=== PATIENT | male | born 1940 | race Caucasian/White ===

== ENCOUNTER 2016-06-27 08:30 | Inpatient (IN) ==
[2016-06-23 12:34] LABS: Appearance,Urine CLEAR; Bilirubin,Urine NEG (NEG); Color,Urine YELLOW; Glucose,Urine (UA) NEGATIVE (NEG); Leukocyte Esterase,Urine NEG /uL (NEG); Nitrate,Urine NEG (NEG); Protein,Urine NEG (NEG); Specific Gravity,Urine 1.016 (1.000-1.035); Urine Blood NEG mg/dL (<0.03); Urobilinogen,Urine NEG (NEG)
[2016-06-23 13:15] LABS: Basophils # (Auto) 0 K/mcL (0.0-0.3); Basophils % (Auto) 0.5 % (0.0-2.0); Eosinophils # (Auto) 0.1 K/mcL (0.0-0.7); Eosinophils % (Auto) 2.1 % (0.0-7.0); Granulocytes % (Auto) 70.4 % (38.0-78.0); Lymphocytes # (Auto) 1.2 K/mcL (1.5-4.8); Mean Corpuscular HGB Conc 31.9 g/dL (31.0-36.0); Mean Corpuscular Hemoglobin 28.7 pg (26.0-34.0); Monocytes # (Auto) 0.3 K/mcL (0.1-0.9); Platelet Count 177 K/mcL (140-440); RBC 4.53 M/mcL (4.50-5.90); Red Cell Distribution Width 13.8 % (11.5-14.5)
[2016-06-23 13:19] LABS: Blood Urea Nitrogen 18 mg/dl (8-23)
[~2016-06-27 08:30] MED LIST: ACETAMINOPHEN 500 MG TABLET PO SCH; CELECOXIB 200 MG CAPSULE PO SCH; PREGABALIN 150 MG CAPSULE PO SCH; ceFAZolin 1 GM VIAL IV SCH; oxyCODONE 10 MG TAB.ER.12H PO SCH
[2016-06-27] MEDS ORDERED: GENTAMICIN SULFATE 800 MG/20 ML VIAL IR ONE (11:32)
[2016-06-27] MEDS ORDERED: TRANEXAMIC ACID 1,000 MG/10 ML VIAL IV ONE (12:35)
[2016-06-27] MEDS ORDERED: KETAMINE 100 MG/ML ML IV ONE (12:35)
[2016-06-27] MEDS ORDERED: GLYCOPYRROLATE 0.2 MG/ML VIAL IV ONE (12:35)
[2016-06-27] MEDS ORDERED: LIDOCAINE HCL/PF 100 MG/5 ML SYRINGE IV ONE (12:35)
[2016-06-27] MEDS ORDERED: MIDAZOLAM 5 MG/5 ML VIAL IV ONE (12:35)
[2016-06-27] MEDS ORDERED: PHENYLEPHRINE 10 MG/ML VIAL IV ONE (12:35)
[2016-06-27] MEDS ORDERED: ONDANSETRON 4 MG/2 ML VIAL IV ONE (12:35)
[2016-06-27] MEDS ORDERED: PROPOFOL 200 MG/20 ML VIAL IV ONE (12:35)
[2016-06-27] MEDS ORDERED: ONDANSETRON 4 MG/2 ML VIAL IV PRN ×2 (13:21→13:56)
[2016-06-27] MEDS ORDERED: ePHEDrine 50 MG/ML AMPUL IV PRN (13:21)
[2016-06-27] MEDS ORDERED: MEPERIDINE 25 MG/ML SYRINGE IV PRN (13:21)
[2016-06-27] MEDS ORDERED: BENZOCAINE/MENTHOL 1 LOZENGE PO PRN ×2 (13:21→13:56)
[2016-06-27] MEDS ORDERED: fentaNYL 100 MCG/2 ML VIAL IV PRN (13:21)
[2016-06-27] MEDS ORDERED: IPRATROPIUM/ALBUTEROL 3 ML AMPUL.NEB NEB PRN (13:21)
[2016-06-27] MEDS ORDERED: METHOCARBAMOL 1,000 MG/10 ML VIAL IV PRN (13:21)
[2016-06-27] MEDS ORDERED: LACTATED RINGERS 1,000 ML IV SCH (13:30)
[2016-06-27] MEDS ORDERED: POLYETHYLENE GLYCOL 3350 17 GM PACKET PO PRN (13:56)
[2016-06-27] MEDS ORDERED: TRANEXAMIC ACID 1,000 MG/10 ML VIAL IV SCH (13:56)
[2016-06-27] MEDS ORDERED: MAGNESIUM HYDROXIDE 30 ML ORAL.SUSP PO PRN (13:56)
[2016-06-27] MEDS ORDERED: BISACODYL 10 MG SUPP.RECT PR PRN (13:56)
[2016-06-27] MEDS ORDERED: KETOROLAC 15 MG/ML VIAL IV PRN (13:56)
[2016-06-27] MEDS ORDERED: ACETAMINOPHEN 325 MG TABLET PO PRN (13:56)
[2016-06-27] MEDS ORDERED: FLEETS ADULT ENEMA PR PRN (13:56)
[2016-06-27] MEDS ORDERED: HYDROmorphone 2 MG/ML SYRINGE IV PRN (13:56)
--- NOTE | 2016-06-27 14:51 | Operative Note ---
DATE OF OPERATION: 06/27/2016 PREOPERATIVE DIAGNOSIS: Right hip degenerative arthritis, severe. POSTOPERATIVE DIAGNOSIS: Right hip degenerative arthritis, severe. PROCEDURE: Right total hip arthroplasty with cementless components. SURGEON: Nikhil Parker MD CENTRIFUGE OPERATOR: Santiago Lanier PA-C ANESTHESIA: General LMA anesthesia. COMPLICATIONS: None. IMPLANTS: All cementless components with a size 5 stem, a +4 ceramic neck length dual mobility ball, and a 56 cup, Anthony components. ESTIMATED BLOOD LOSS: About 120 mL. DESCRIPTION OF PROCEDURE: The patient was brought to the operating room and put to sleep with general LMA anesthesia. Once asleep, the patient had the right hip sterilely prepped and draped in the usual sterile fashion. We confirmed this was the operative site. Preop antibiotics were given. Tranexamic acid was given. We then made a superior posterior approach to the hip through the skin and through the gluteus jen, exposed the posterior superior capsule which was released with the piriformis obturator internus which was tacked. We dislocated the hip and made our neck cut at 34 mm from the center of hip rotation. Once this was done, we then subluxed the hip anteriorly, and removed a very large deformed labrum that had been walked on. WE recreated the hip center of rotation and reamed medially, reamed up to the size 55, implanted a 56 cup with no screws, very well fixed and good bone quality. We then placed the dual mobility liner and then the hip was broached up to the size 5. We tried a standard poly. Once this was done, we took an x-ray to confirm leg length. The right hip was slightly shorter. We then placed a +4 neck length with no x-ray and implanted the size 5 stem, a +4 ceramic neck length dual mobility ball. This was reduced, very stable throughout range of motion. We irrigated, closed the capsule with #2 Ethibond, closed the fascial layer with #2 Ethibond and #1 Vicryl, closed the skin with 2-0 Vicryl and adhesive closure. The patient tolerated this without complication. RBH:gabbi Job ID: [id number] Doc ID: [id number] Nikhil Parker MD
[2016-06-27] MEDS: 0.45 % SODIUM CHLORIDE 1,000 ML IV SCH (15:14)
[2016-06-27] MEDS: 0.9 % SODIUM CHLORIDE 10 ML SYRINGE IV SCH ×2 (15:14→20:47)
--- NOTE | 2016-06-27 15:42 | XRay Report ---
CLINICAL INFORMATION: Postop total hip FINDINGS: Right total hip prostheses is in near-anatomic alignment with slight lateral canting of the acetabular component. Older left hip prostheses also anatomically aligned. Radiation seeds in the prostate. No osseous abnormality. IMPRESSION: Right total hip prostheses - as described Interpreted and Authenticated by: Stefano Caldera 06/27/16
[2016-06-27] MEDS: HYDROcodone/APAP 10/325MG TABLET PO PRN (18:49)
[2016-06-27] MEDS: ceFAZolin 1 GM VIAL IV SCH (20:31)
[2016-06-27] MEDS: DOCUSATE SODIUM 100 MG CAPSULE PO SCH (20:47)
[2016-06-27] MEDS: ASPIRIN 325 MG ENTERIC COATED TABLET PO SCH (20:47)
[2016-06-27] MEDS ORDERED: TEMAZEPAM 15 MG CAPSULE PO PRN (21:00)
[2016-06-27] MEDS ORDERED: traZODone HCL 50 MG TABLET PO SCH (21:00)
[2016-06-27] MEDS ORDERED: SENNOSIDES 1 TABLET PO SCH (21:00)
[2016-06-27] MEDS: TAMSULOSIN 0.4 MG CAPSULE PO SCH (22:54)
[2016-06-28] MEDS: HYDROcodone/APAP 10/325MG TABLET PO PRN ×2 (00:07→07:00)
[2016-06-28] MEDS: 0.45 % SODIUM CHLORIDE 1,000 ML IV SCH (02:14)
[2016-06-28] MEDS: 0.9 % SODIUM CHLORIDE 10 ML SYRINGE IV SCH (04:31)
[2016-06-28] MEDS: ceFAZolin 1 GM VIAL IV SCH (04:31)
--- NOTE | 2016-06-28 07:40 | Orthopedic Progress Note ---
Subjective Patient information: Note initiated : 06/28/16 at 7:39 am Service Date, if different from initiated Date: [] Patient: Cayla Wilder 75 y/o M admitted on 06/27/16 for Right Total Hip Arthroplasty. Chief Complaint: [Pt is stable this morning on post operative day 1 without any significant concerns or complaints. Patients vital signs have remained stable. Patients dressing is dry and exhibits a grossly intact neurovascular and neuromotor exam. Patients 10 point ROS is otherwise negative. ] Objective Vital signs: Vital Signs Temp Pulse Pulse Resp BP BP Pulse Ox 06/28/16 07:33 96 06/28/16 04:50 96 06/28/16 04:00 98.8 F 84 12 100/50 96 06/28/16 01:00 95 06/28/16 00:00 98.9 F 80 12 104/54 95 06/27/16 23:00 95 06/27/16 21:00 98 06/27/16 19:57 97.1 F L 72 12 112/68 99 06/27/16 19:00 99 06/27/16 18:35 79 16 126/69 94 06/27/16 17:00 98 06/27/16 16:27 53 L 53 L 94/55 98 06/27/16 16:12 57 L 89/58 98 06/27/16 15:56 98 06/27/16 15:44 63 87/54 97 06/27/16 15:43 62 87/57 97 06/27/16 15:27 67 88/56 98 06/27/16 15:12 59 L 93/53 99 06/27/16 15:11 60 92/54 99 06/27/16 14:57 97.0 F L 57 L 16 98/53 100 06/27/16 14:51 97.0 F L 54 L 14 95/58 100 06/27/16 14:36 97.0 F L 57 L 22 95/55 100 06/27/16 14:31 97.0 F L 63 19 100/53 100 06/27/16 14:26 97.0 F L 58 L 16 109/54 100 06/27/16 14:21 97.0 F L 60 16 115/61 100 06/27/16 14:16 97.0 F L 52 L 16 91/50 100 06/27/16 14:11 97.0 F L 48 L 16 81/46 100 06/27/16 14:06 97.0 F L 51 L 13 84/45 100 06/27/16 13:56 98 06/27/16 08:50 98.8 F 80 18 117/75 95 06/27/16 08:30 98.8 F 80 18 117/75 95 Intake and Output 06/27/16 06/28/16 06/28/16 21:59 05:59 13:59 Intake Total 2740 / 2740 1300 / 1300 Output Total 1075 / 1075 800 / 800 475 / 475 Balance 1665 / 1665 500 / 500 -475 / -475 Intake: IV 1999 / 1999 1000 / 1000 Sodium Chloride 0.45% 1, 1000 / 1000 000 ml @ 100 mls/hr IV . Q10H JENI Rx#:[id number] Lactated Ringers 1,000 ml 2000 / 2000 @ 20 mls/hr IV .Q24H JENI Rx#:[id number] Oral 740 / 740 300 / 300 Output: Void Amount 800 / 800 800 / 800 475 / 475 Straight 500 / 500 Straight Cath #2 350 / 350 Estimated Blood Loss 275 / 275 Other: # Voids 1 Weight 168 lb Intake & Output: Intake & Output 06/27/16 06/28/16 06/28/16 21:59 05:59 13:59 Intake Total 2740 / 2740 1300 / 1300 Output Total 1075 / 1075 800 / 800 475 / 475 Balance 1665 / 1665 500 / 500 -475 / -475 Weight 168 lb Intake: IV 1999 / 1999 1000 / 1000 Sodium Chloride 0.45% 1, 1000 / 1000 000 ml @ 100 mls/hr IV . Q10H JENI Rx#:[id number] Lactated Ringers 1,000 ml 2000 / 2000 @ 20 mls/hr IV .Q24H JENI Rx#:[id number] Oral 740 / 740 300 / 300 Output: Void Amount 800 / 800 800 / 800 475 / 475 Straight 500 / 500 Straight Cath #2 350 / 350 Estimated Blood Loss 275 / 275 Other: # Voids 1 Incision: Yes healing Incision clean and dry: Yes Dressing: Yes clean, Yes dry Weight bearing status: full Neurological exam IM: Yes motor sensory intact, Yes neurovascular intact Extremities exam IM: Yes Foot pink and warm, Yes neurovascular intact - Labs CBC & BMP: 06/28/16 06:18 06/23/16 11:42 Labs: Orthopedic Labs 06/23/16 11:42 PT 13.6 INR 1.0 APTT 23 06/28/16 06/23/16 06:18 11:42 Hgb 13.0 L Hct 32.1 L 40.8 L Assessment and Plan (1) Hx of total hip arthroplasty Patient has been educated regarding wound care and dressings, follow up recommendations, and medication use. We will f/u with the patient within 2-3 weeks for wound check. Status: Acute
--- NOTE | 2016-06-28 07:43 | Discharge Summary ---
Ortho Discharge - LINDA - Patient Instructions Diet: Regular Diet Activity: activity as tolerated, weight bearing as tolerated Total Hip Protocol: Follow activity instructions as provided by Physical Therapy. Dressing Care: May shower in 2 days Patient Education: Total Hip Replacement (DC) Additional Instructions: Patient wishes to do own physical therapy. Discharge Instructions: Do the exercises at home that physical therapy gave you. Take your prescription, photo ID, insurance cards, and current medication list with you to your first physical therapy appointment. Take your prescription to [facility] any medication or equipment (such as walker, crutches, toilet riser or C.P.M.) Wear comfortable clothing for your physical therapy. Weight bearing as tolerated. Keep incision clean and dry. You have Dermabond (a dressing with a mesh-like appearance), leave open to air. You may start showering on post op day #2. The Dermabond dressing can get wet, do not scrub dressing. Pat dry. To avoid constipation while taking any narcotic pain medication, take an over the counter stool softener/laxative. Use your Cryocuff or ice packs as directed, on for 20 minutes at a time throughout the day. This and elevation will help with pain and swelling. Call your physician for fevers above 100.5 or pain not controlled by medication. Your prescriptions are with your discharge information. Some medications were electronically transmitted to your pharmacy of choice. - Problem Maintenance (1) Hx of total hip arthroplasty Status: Acute - Follow Up Plan Follow Up Appointments: Nikhil Parker MD [Family Provider] - 07/14/16 10:10 am Disposition: Home, Self-Care Prognosis: Good Rehab Potential: Good I certify that the patient requires SNF services: No Overall status at discharge: patient is progressing back to baseline - Orders For Discharge Prescriptions: Aspirin [Ecotrin] 325 mg PO BID #60 tab.ec Docusate Sodium [Colace] 100 mg PO BID #60 capsule HYDROcodone/APAP 10/325MG [[place] 10/325Mg] 1 - 2 tab PO Q4HP PRN #75 tablet PRN Reason: Pain
[2016-06-28] MEDS ORDERED: OXYBUTYNIN CHLORIDE 5 MG TABLET PO SCH (09:00)
[2016-06-28] MEDS ORDERED: LISINOPRIL 20 MG TABLET PO SCH (09:00)
[2016-06-28] MEDS: DOCUSATE SODIUM 100 MG CAPSULE PO SCH (09:19)
[2016-06-28] MEDS: TAMSULOSIN 0.4 MG CAPSULE PO SCH (09:19)
[2016-06-28] MEDS: ASPIRIN 325 MG ENTERIC COATED TABLET PO SCH (09:19)
== END 2016-06-28 10:50 | disposition home or self-care (01) ==
LOC: MEDSUR 08:30
PROVIDERS: ADMIT Orthopaedic Surgery; ATTEND Orthopaedic Surgery

== ENCOUNTER 2016-10-17 07:08 | Inpatient (IN) ==
[2016-10-12 11:57] LABS: Blood Urea Nitrogen 25 mg/dl (8-23)
[2016-10-12 12:10] LABS: Basophils # (Auto) 0 K/mcL (0.0-0.3); Basophils % (Auto) 0.5 % (0.0-2.0); Eosinophils # (Auto) 0.1 K/mcL (0.0-0.7); Eosinophils % (Auto) 1.7 % (0.0-7.0); Granulocytes % (Auto) 70.1 % (38.0-78.0); Lymphocytes % (Auto) 20.3 % (15.5-49.0); Mean Cell Volume 88.8 fL (80.0-100.0); Mean Corpuscular Hemoglobin 29.3 pg (26.0-34.0); Monocytes # (Auto) 0.4 K/mcL (0.1-0.9); Monocytes % (Auto) 7.4 % (1.0-12.0); Platelet Count 175 K/mcL (140-440); RBC 4.36 M/mcL (4.50-5.90); Red Cell Distribution Width 13.7 % (11.5-14.5)
[2016-10-12 12:13] LABS: Appearance,Urine CLEAR; Bacteria,Urine 0 /hpf (0); Bilirubin,Urine NEG (NEG); Color,Urine YELLOW; Glucose,Urine (UA) NEGATIVE (NEG); Leukocyte Esterase,Urine NEG /uL (NEG); Mucus,Urine FEW /hpf (0); Nitrate,Urine NEG (NEG); Protein,Urine NEG (NEG); Specific Gravity,Urine 1.015 (1.000-1.035); Urine Blood 0.03 mg/dL (<0.03); Urine RBC 3 /hpf (0-1); Urine Squamous Epithelial Cell 0 /hpf (0-4); Urine WBC < 1 /hpf (0-4); Urobilinogen,Urine NEG (NEG)
[~2016-10-17 07:08] MED LIST changes: -PREGABALIN 150 MG CAPSULE PO SCH; +PREGABALIN 75 MG CAPSULE PO SCH
[2016-10-17] MEDS ORDERED: LIDOCAINE HCL/PF 100 MG/5 ML SYRINGE IV ONE (09:20)
[2016-10-17] MEDS ORDERED: ONDANSETRON 4 MG/2 ML VIAL IV ONE (09:20)
[2016-10-17] MEDS ORDERED: GLYCOPYRROLATE 0.2 MG/ML VIAL IV ONE (09:20)
[2016-10-17] MEDS ORDERED: TRANEXAMIC ACID 1,000 MG/10 ML VIAL IV ONE ×3 (09:20→11:20)
[2016-10-17] MEDS ORDERED: MIDAZOLAM 2 MG/2 ML VIAL IV ONE (09:20)
[2016-10-17] MEDS ORDERED: PHENYLEPHRINE 10 MG/ML VIAL IV ONE (09:20)
[2016-10-17] MEDS ORDERED: PROPOFOL 200 MG/20 ML VIAL IV ONE (09:20)
[2016-10-17] MEDS ORDERED: ePHEDrine 50 MG/ML AMPUL IV ONE (09:20)
[2016-10-17] MEDS ORDERED: DEXAMETHASONE 10 MG/ML VIAL IV ONE (09:20)
[2016-10-17] MEDS ORDERED: ROPIVACAINE HCL/PF 20 ML VIAL IJ ONE (09:20)
[2016-10-17] MEDS ORDERED: fentaNYL 100 MCG/2 ML VIAL IV ONE (09:20)
[2016-10-17] MEDS ORDERED: KETAMINE 100 MG/ML ML IV ONE (09:20)
[2016-10-17] MEDS ORDERED: BENZOCAINE/MENTHOL 1 LOZENGE PO PRN ×2 (10:44→11:02)
[2016-10-17] MEDS ORDERED: IPRATROPIUM/ALBUTEROL 3 ML AMPUL.NEB NEB PRN (10:44)
[2016-10-17] MEDS ORDERED: HYDROmorphone 2 MG/ML SYRINGE IV PRN ×2 (10:44→11:02)
[2016-10-17] MEDS ORDERED: ePHEDrine 50 MG/ML AMPUL IV PRN (10:44)
[2016-10-17] MEDS ORDERED: ONDANSETRON 4 MG/2 ML VIAL IV PRN ×2 (10:44→11:02)
[2016-10-17] MEDS ORDERED: METHOCARBAMOL 1,000 MG/10 ML VIAL IV PRN (10:44)
[2016-10-17] MEDS ORDERED: diphenhydrAMINE 50 MG/ML VIAL IV PRN (10:44)
[2016-10-17] MEDS ORDERED: NALOXONE HCL 0.4 MG/ML VIAL IV PRN (10:44)
[2016-10-17] MEDS ORDERED: LACTATED RINGERS 250 ML IV PRN (10:44)
[2016-10-17] MEDS ORDERED: MEPERIDINE 50 MG/ML SYRINGE IM PRN (10:44)
[2016-10-17] MEDS ORDERED: MEPERIDINE 25 MG/ML SYRINGE IV PRN (10:44)
[2016-10-17] MEDS ORDERED: FLUMAZENIL 0.1 MG/ML ML IV PRN (10:44)
[2016-10-17] MEDS ORDERED: fentaNYL 100 MCG/2 ML VIAL IV PRN (10:44)
[2016-10-17] MEDS ORDERED: LACTATED RINGERS 1,000 ML IV SCH (10:45)
--- NOTE | 2016-10-17 11:01 | Brief Operative Note ---
Date of procedure: 10/17/16 Pre-op diagnosis: Right shoulder loosened soft tissue Post-op diagnosis: same Procedure: Right shoulder revision glenosphere and polyliner exchange revison Grafts/Implants: Yes Anesthesia: GETA Complications Description: 10/17/16 11:01 none Surgeon: Nikhil Parker Front Office Help: Santiago Lanier Estimated blood loss (cc): 30 Tourniquet Time (Minutes): 0 Specimens Removed/Pathology: none sent Condition: stable Disposition: PACU
[2016-10-17] MEDS ORDERED: POLYETHYLENE GLYCOL 3350 17 GM PACKET PO PRN (11:02)
[2016-10-17] MEDS ORDERED: BISACODYL 10 MG SUPP.RECT PR PRN (11:02)
[2016-10-17] MEDS ORDERED: HYDROcodone/APAP 10/325MG TABLET PO PRN (11:02)
[2016-10-17] MEDS ORDERED: TEMAZEPAM 15 MG CAPSULE PO PRN (11:02)
[2016-10-17] MEDS ORDERED: FLEETS ADULT ENEMA PR PRN (11:02)
[2016-10-17] MEDS ORDERED: KETOROLAC 15 MG/ML VIAL IV PRN (11:02)
[2016-10-17] MEDS ORDERED: ACETAMINOPHEN 325 MG TABLET PO PRN (11:02)
[2016-10-17] MEDS ORDERED: MAGNESIUM HYDROXIDE 30 ML ORAL.SUSP PO PRN (11:02)
[2016-10-17] MEDS ORDERED: 0.45 % SODIUM CHLORIDE 1,000 ML IV SCH (11:15)
[2016-10-17] MEDS ORDERED: TRANEXAMIC ACID 1,000 MG/10 ML VIAL IV SCH (11:45)
--- NOTE | 2016-10-17 11:47 | Operative Note ---
DATE OF OPERATION: 10/17/2016 PREOPERATIVE DIAGNOSIS: Right shoulder instability. POSTOPERATIVE DIAGNOSIS: Right shoulder instability. PROCEDURE: Right reverse total shoulder revision of both the glenosphere and the humeral side of the baseplate and poly. SURGEON: Nikhil Parker MD LITERATURE PROFESSOR: Santiago Lanier PA-C ANESTHESIA: General LMA anesthesia. COMPLICATIONS: None. SPECIMENS: Pathology sent for high powered field, which showed less than 5 cells per high powered field. DESCRIPTION OF PROCEDURE: The patient was taken to the operating room and put to sleep with general LMA anesthesia. Once asleep, the patient had the right shoulder sterilely prepped and draped in the usual sterile fashion. Once this was confirmed as the operative site, we placed Ioban over the skin and then made an incision through his prior scar. This was dissected through the deltopectoral interval. Once this was done, we exposed the joint which showed a complete capsule around the shoulder. We incised through. There was a lot of fluid within the shoulder, so we sent pathology with this for cultures as well as cell count. Once this was done, I then dislocated the shoulder and removed the glenosphere and the poly liner. The humeral baseplate was removed. Removing the baseplate screw, there was a large cyst posteriorly on the humerus, which was evacuated. The fluid in the shoulder was cloudy. Soft tissue samples were sent for pathology. There was impingement posteriorly and poly wear on the posterior aspect showing some impingement. We removed the glenosphere, made sure the baseplate was intact, removed the soft tissue around the metaglene. We thoroughly irrigated the shoulder and then placed a 42 mm with a +4 mm of offset. Once this was locked into place with a central screw, we then performed the humeral side with trials. We trialed neutral +2. These were too loose. A +5 baseplate with a neutral poly was the best fit. This was reduced, very stable without impingement. We irrigated and placed 5+ baseplate with a neutral poly liner. A central screw was used to lock the base plate into place and a bone graft to 5 mL was placed into the posterior humerus around the posterior stem which showed the stem to be well fixed. We irrigated thoroughly and reduced the shoulder. It was very stable throughout full range of motion. We irrigated thoroughly, closed the anterior capsule with #2 Ethibond, closed the capsule with 0 Vicryl and the skin with 0 Vicryl and 2-0 Vicryl and adhesive closure. The patient tolerated this well. The patient was placed in a [place] sling. RBH:ebony Job ID: [id number] Doc ID: [id number] Nikhil Parker MD
--- NOTE | 2016-10-17 11:52 | XRay Report ---
CLINICAL INFORMATION: Postop total shoulder prostheses COMPARISON: None. FINDINGS: Total shoulder prostheses is anatomically aligned. Acromioplasty changes are also noted. There is gas and soft tissue swelling the surgical site - as expected IMPRESSION: Negative Interpreted and Authenticated by: Stefano Caldera 10/17/16
[2016-10-17] MEDS ORDERED: GENTAMICIN SULFATE 800 MG/20 ML VIAL IR ONE (13:41)
[2016-10-17] MEDS ORDERED: BACITRACIN TOPICAL OINT 15 GM TUBE TOPICAL ONE (13:42)
[2016-10-17] MEDS ORDERED: 0.9 % SODIUM CHLORIDE 10 ML SYRINGE IV SCH (14:00)
[2016-10-17] MEDS ORDERED: ceFAZolin 1 GM VIAL IV SCH (17:00)
[2016-10-17] MEDS ORDERED: DOCUSATE SODIUM 100 MG CAPSULE PO SCH (21:00)
[2016-10-17] MEDS ORDERED: SENNOSIDES 1 TABLET PO SCH (21:00)
[2016-10-17] MEDS ORDERED: traZODone HCL 50 MG TABLET PO SCH (21:00)
[2016-10-17] MEDS ORDERED: ACETAMINOPHEN 500 MG TABLET PO SCH (21:00)
[2016-10-17] MEDS ORDERED: diphenhydrAMINE 25 MG CAPSULE PO SCH (21:00)
[2016-10-17] MEDS ORDERED: OXYBUTYNIN CHLORIDE 5 MG TABLET PO SCH (21:00)
[2016-10-17] MEDS ORDERED: TAMSULOSIN 0.4 MG CAPSULE PO SCH (21:00)
[2016-10-18] MEDS ORDERED: MELOXICAM 7.5 MG TABLET PO SCH (09:00)
[2016-10-18] MEDS ORDERED: LISINOPRIL 20 MG TABLET PO SCH (09:00)
--- NOTE | 2016-10-18 13:10 | Surgical Pathology Report ---
HISTOLOGY SPECIMEN MICROSCOPIC DIAGNOSIS SYNOVIUM, RIGHT HUMERUS, BIOPSY: -- FIBROTIC SYNOVIUM WITH FOAMY PIGMENTED HISTIOCYTES, CONSISTENT WITH IMPLANT-RELATED CHANGES. -- NO SIGNIFICANT ACUTE INFLAMMATION (LESS THAN 1 NEUTROPHIL PER HPF). (SE:sukhf) INTRAOPERATIVE CONSULTATION FROZEN SECTION DIAGNOSIS (Performed at [facility], [place], [place]) HUMERAL SOFT TISSUE: -- LESS THAN ONE NEUTROPHIL PER HPF. (SE:sln) GROSS DESCRIPTION The specimen is received fresh for frozen section labeled with patient identifiers only and consists of multiple ramos-johns soft tissue fragments having an aggregate measurement of 2 x 1 x 0.5 cm. The entire specimen is evaluated by frozen section and submitted for permanents as FSA. ([facility]:sln) Electronically Signed by: Stephanie Marin D.O.
== END 2016-10-17 19:10 | disposition home or self-care (01) | DRG 483 ==
LOC: MEDSUR 07:08
PROVIDERS: ADMIT Orthopaedic Surgery; ATTEND Orthopaedic Surgery

== ENCOUNTER 2019-10-22 15:46 | Inpatient (IN) ==
[2019-10-22] MEDS ORDERED: ONDANSETRON 4 MG/2 ML VIAL IV PRN (16:45)
[2019-10-22] MEDS ORDERED: HYDROcodone/APAP 5/325MG TABLET PO PRN (16:47)
[2019-10-22] MEDS ORDERED: NALOXONE HCL 0.4 MG/ML VIAL IV PRN (16:47)
[2019-10-22] MEDS ORDERED: morphine 4 MG/ML VIAL IV PRN (16:47)
[2019-10-22] MEDS ORDERED: ACETAMINOPHEN 325 MG TABLET PO PRN (16:47)
[2019-10-22 18:27] LABS: Basophils # (Auto) 0.03 K/mcL (0.00-0.30); Basophils % (Auto) 0.6 % (0.0-2.0); Eosinophils # (Auto) 0.18 K/mcL (0.00-0.70); Eosinophils % (Auto) 3.8 % (0.0-7.0); Granulocytes % (Auto) 65.6 % (38.0-78.0); Hematocrit 37.4 % (40.1-51.0); Hemoglobin 12.1 g/dL (13.7-17.5); Lymphocytes # (Auto) 0.93 K/mcL (1.50-4.80); Lymphocytes % (Auto) 19.5 % (15.5-49.0); Mean Cell Volume 91.7 fL (80.0-100.0); Mean Corpuscular HGB Conc 32.4 g/dL (31.0-36.0); Mean Platelet Volume 10.3 fL (7.4-10.4); Monocytes % (Auto) 10.5 % (1.0-12.0); Platelet Count 149 K/mcL (140-440); RBC 4.08 M/mcL (4.63-6.08); Red Cell Distribution Width 12.7 % (11.5-14.5); WBC 4.8 K/mcL (4.50-11.00)
[2019-10-22 18:35] LABS: Prothrombin Time 13.2 sec (11.9-14.5)
[2019-10-22 18:48] LABS: Blood Urea Nitrogen 38 mg/dl (8-23); Calcium 9.6 mg/dl (8.6-10.4); Carbon Dioxide 25 mmol/L (22-30); Chloride 97 mmol/L (96-108); Glomerular Filtration Rate 41; Glucose 81 mg/dL (70-105)
[2019-10-22 18:50] LABS: Appearance,Urine CLEAR; Bacteria,Urine 0 /hpf (0); Bilirubin,Urine NEG (NEG); Color,Urine STRAW; Culture Indicated,Urine NO; Glucose,Urine (UA) NEGATIVE (NEG); Ketones,Urine 5/TR mg/dL (NEG); Leukocyte Esterase,Urine NEG /uL (NEG); Nitrate,Urine NEG (NEG); Protein,Urine NEG (NEG); Specific Gravity,Urine 1.009 (1.000-1.035); Urine Blood 0.03 mg/dL (<0.03); Urine RBC < 1 /hpf (0-1); Urine Squamous Epithelial Cell 0 /hpf (0-4); Urine WBC < 1 /hpf (0-4); Urobilinogen,Urine NEG (NEG)
--- NOTE | 2019-10-22 19:55 | Internal Medicine Consult Note ---
HPI Data of Consult Consult date: 10/22/19 Requesting physician: Nikhil Parker Primary Care Provider: [place] Consult Narrative Patient Information: Note initiated : 10/22/19 at 7:42 pm Service Date, if different from initiated Date: [] Patient: Cayla Wilder 79 y/o M admitted on 10/22/19 for Right Hip Dislocation. Chief Complaint: right hip pain Patient is a 79-year-old gentleman with a history of right total hip arthroplasty who suffered a dislocation over this past weekend. Patient states he fell/jumped off a ladder when he lost his balance on Monday. He landed hard on his right leg and had pain in his hip, which became dislocated. He was seen in [place], had it reduced. On Monday he fell, again had pain in his hip with redislocation. He is seen Dr. Parker in the office, plans surgical intervention tomorrow. Patient's past medical history is notable for hypertension, prostate cancer and skin cancers. He also has osteoarthritis. 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 The right was due to a blasting cap, the left was due to a splitting maul. He has no history of coronary disease. His activity is not limited by any symptoms of chest tightness or squeezing or pressure. He does not get dyspnea with most exertion. He has no history of underlying lung disease. No history of congestive heart failure. Other than hip pain, he is generally without complaints. He suffers from occasional postnasal drip, has chronic slow urinary stream which is unchanged. No dysuria. No fevers or chills, no vision changes, no current cough or sputum production, no dyspnea, no orthopnea, no edema, no chest pain/tightness/squeezing. No abdominal pain, nausea or vomiting, diarrhea. No history of stroke, no focal neurologic symptoms. No history of diabetes, no history of thyroid disease, no history of kidney disease. Reason for consult: Preoperative evaluation of medical problems cc:: CC: Nikhil Parker Review of Systems All systems: reviewed and no additional remarkable complaints except as stated PFSH PFSH All Active Problems (Updated 10/22/19 @ 19:38 by Glenys Martinez MD) Dislocation of internal right hip prosthesis (Acute) Bladder outlet obstruction (Acute) Hypertension (Acute) Osteoarthritis (Acute) Hx of total shoulder replacement (Acute) Hx of total hip arthroplasty (Acute) Medical History (Updated 10/22/19 @ 19:57 by Glenys Martinez MD) Bladder outlet obstruction (Acute) Hypertension (Acute) Osteoarthritis (Acute) Prostate cancer (Acute) Skin cancer (Acute) Surgical History (Updated 10/22/19 @ 19:38 by Glenys Martinez MD) History of amputation of finger of both hands (Acute) Traumatic Hx of total hip arthroplasty (Acute) Hx of total shoulder replacement (Acute) Family History (Updated 10/22/19 @ 19:39 by Glenys Martinez MD) Father Coronary artery disease Mother Emphysema of lung Social History (Updated 10/22/19 @ 19:39 by Glenys Martinez MD) smoking status: Smokeless tobacco alcohol intake frequency: a few times a month MEDS/ALLERGIES Home Medications and Allergies Home Medications Medication Instructions Recorded Confirmed Type lisinopril 20 mg PO DAILY 06/23/16 10/22/19 History meloxicam 7.5 mg PO DAILY 06/23/16 10/22/19 History oxybutynin chloride 5 mg PO HS 06/23/16 10/22/19 History tamsulosin 0.4 mg PO HS 06/23/16 10/22/19 History trazodone 50 mg PO HS 06/23/16 10/22/19 History diphenhydramine-acetaminophen 1 ea PO HS 10/12/16 10/22/19 History [Pain Reliever Pm Caplet] Hydrocodone/Apap 7.5/325mg [[place] 1 - 2 tab PO Q4HP PRN #60 tab 10/17/16 10/22/19 Rx 7.5-325mg] Allergies Allergy/AdvReac Type Severity Reaction Status Date / Time No Known Drug Allergies Allergy Verified 06/27/16 09:16 EXAM Constitutional Vitals: Temp Pulse Resp BP Pulse Ox 99.3 F H 84 18 123/68 97 10/22/19 16:15 10/22/19 16:15 10/22/19 16:15 10/22/19 16:15 10/22/19 16:15 GENERAL: Alert, oriented, in no acute distress. Cooperative, appears stated age. HEENT: Atraumatic. PERRL, conjunctiva clear, no scleral icterus. Hearing grossly intact. Oropharynx with moist mucous membranes, no pharyngeal erythema or exudate. Tongue midline, palate rises symmetrically. NECK: Supple without meningismus, no thyromegaly RESPIRATORY: Breath sounds clear bilaterally without wheezes or rhonchi. Respiratory effort is unlabored. CARDIOVASCULAR: Regular rate and rhythm, 1/6 systolic murmur at the apex without radiation, no gallop or rub. No peripheral edema. Carotid pulses 2+ without bruit. GI: Abdomen soft, nontender, no guarding or rebound. Bowel sounds are present. No hepatosplenomegaly. MUSCULOSKELETAL: Right lower extremity with intact pulses. Surgical scars on the left shoulder. Distal phalanx of thumbs and right index finger missing. SKIN: Intact, warm, dry. Several surgical scars. Skin turgor normal. NEUROLOGIC: Cranial nerves II through XII grossly intact. Muscle mass normal. Strength 5/5 in the upper and lower extremities. Sensation intact to light touch bilaterally. PSYCHIATRIC: Alert, oriented x3, normal mood and affect, normal insight. DATA Data Completed and Pending Labs: Labs from last 24 hours 10/22/19 10/22/19 10/22/19 18:16 17:07 17:07 WBC RBC Hgb Hct MCV MCH MCHC RDW Plt Count MPV Gran % Lymph % (Auto) [place] % (Auto) Eos % (Auto) Baso % (Auto) Gran # Lymph # (Auto) [place] # (Auto) Eos # (Auto) Baso # (Auto) PT 13.2 INR 1.0 Sodium 135 Potassium 4.9 Chloride 97 Carbon Dioxide 25 Anion Gap 13.0 BUN 38 H Creatinine 1.6 H GFR Calculation 41 Glucose 81 Calcium 9.6 Urine Color Straw Urine Appearance Clear Urine pH 6.0 Ur Specific [place] 1.009 Urine Protein Neg Urine Glucose (UA) Negative Urine Ketones 5/tr A Urine Occult Blood 0.03 A Urine Nitrate Neg Urine Bilirubin Neg Urine Urobilinogen Neg Ur Leukocyte Esterase Neg Urine RBC < 1 Urine WBC < 1 Ur Squamous Epith Cells 0 Urine Bacteria 0 Ur Culture Indicated? No 10/22/19 17:07 WBC 4.8 RBC 4.08 L Hgb 12.1 L Hct 37.4 L MCV 91.7 MCH 29.7 MCHC 32.4 RDW 12.7 Plt Count 149 MPV 10.3 Gran % 65.6 Lymph % (Auto) 19.5 [place] % (Auto) 10.5 Eos % (Auto) 3.8 Baso % (Auto) 0.6 Gran # 3.12 Lymph # (Auto) 0.93 L [place] # (Auto) 0.50 Eos # (Auto) 0.18 Baso # (Auto) 0.03 PT INR Sodium Potassium Chloride Carbon Dioxide Anion Gap BUN Creatinine GFR Calculation Glucose Calcium Urine Color Urine Appearance Urine pH Ur Specific [place] Urine Protein Urine Glucose (UA) Urine Ketones Urine Occult Blood Urine Nitrate Urine Bilirubin Urine Urobilinogen Ur Leukocyte Esterase Urine RBC Urine WBC Ur Squamous Epith Cells Urine Bacteria Ur Culture Indicated? Impressions Impressions: EKG: Sinus rhythm with right bundle branch block, appears similar to 2017. A/P Assessment and plan (1) Dislocation of internal right hip prosthesis: Status: Acute Narrative A/P Narrative: 79-year-old male with a history of right total hip arthroplasty presents with second dislocation secondary to falls in 3 days. Hip dislocation. Patient without history of significant coronary disease or lung disease. No evidence of heart failure on exam. He carries on strenuous daily activities without chest symptoms. At this point no further preop stratification is indicated. Operative management per orthopedics Pain control ordered N.p.o. after midnight Hypertension. Blood pressure normal at admission. Continue lisinopril. History of prostate cancer with bladder outlet obstruction. Patient on oxybutynin and tamsulosin. Would be at risk for postoperative urinary retention. Continuing tamsulosin and oxybutynin Monitor for evidence of urinary retention with anesthesia and pain medications. Possible chronic kidney disease. Creatinine 1.6, last creatinine in the system in 2017 was 1.1. Patient does have meloxicam on his medication list, which could be contributing. Or this could represent progression of some hypertensive renal disease. Avoid nonsteroidals and other nephrotoxic agents as much as possible Hydration starting 11 PM as he will be n.p.o. after midnight CODE STATUS discussed: Full code Time Spent With Patient Time: Total time spent is greater than 50% in coordination of care (as documented) at patient's floor/unit and/or counseling patient:
[2019-10-22] MEDS ORDERED: oxyCODONE/APAP 5/325MG TABLET PO PRN (20:14)
[2019-10-22] MEDS: 0.9 % SODIUM CHLORIDE 10 ML SYRINGE IV SCH (20:55)
[2019-10-22] MEDS ORDERED: TAMSULOSIN 0.4 MG CAPSULE PO SCH (21:00)
[2019-10-22] MEDS ORDERED: OXYBUTYNIN CHLORIDE 5 MG TABLET PO SCH (21:00)
[2019-10-22] MEDS ORDERED: DOCUSATE SODIUM 100 MG CAPSULE PO SCH (21:00)
[2019-10-22] MEDS ORDERED: SENNOSIDES 1 TABLET PO SCH (21:00)
[2019-10-22] MEDS ORDERED: traZODone HCL 50 MG TABLET PO PRN (21:00)
[2019-10-22] MEDS ORDERED: traZODone HCL 50 MG TABLET PO SCH (21:00)
[2019-10-22] MEDS: HYDROmorphone 1 MG/ML SYRINGE IV PRN (21:04)
[2019-10-22 21:17] LABS: Partial Thromboplastin Time 33 sec (20-37)
[2019-10-22] MEDS ORDERED: 0.9 % SODIUM CHLORIDE 1,000 ML IV SCH (23:00)
[2019-10-23] MEDS: HYDROmorphone 1 MG/ML SYRINGE IV PRN ×2 (00:12→04:19)
[2019-10-23] MEDS: 0.9 % SODIUM CHLORIDE 10 ML SYRINGE IV SCH ×2 (04:31→14:27)
[2019-10-23] MEDS ORDERED: ceFAZolin 2 GM in DEXTROSE 5% IN WATER 50 ML IV SCH (06:00)
[2019-10-23] MEDS ORDERED: GENTAMICIN SULFATE 800 MG/20 ML VIAL IR ONE (06:06)
[2019-10-23] MEDS ORDERED: PHENYLEPHRINE 10 MG/ML VIAL ONE (06:25)
[2019-10-23] MEDS ORDERED: PROPOFOL 200 MG/20 ML VIAL IV ONE (06:25)
[2019-10-23] MEDS ORDERED: SUCCINYLCHOLINE 20 MG/ML ML IV ONE (06:25)
[2019-10-23] MEDS ORDERED: LIDOCAINE HCL/PF 100 MG/5 ML SYRINGE IV ONE (06:25)
[2019-10-23] MEDS ORDERED: ONDANSETRON 4 MG/2 ML VIAL ONE (06:25)
[2019-10-23] MEDS ORDERED: GLYCOPYRROLATE 0.2 MG/ML VIAL IV ONE (06:25)
[2019-10-23] MEDS ORDERED: fentaNYL 250 MCG/5 ML VIAL IV ONE (06:25)
[2019-10-23] MEDS ORDERED: ePHEDrine 50 MG/ML AMPUL IV ONE (06:25)
[2019-10-23] MEDS ORDERED: KETAMINE 100 MG/ML ML ONE (06:25)
[2019-10-23] MEDS ORDERED: DEXAMETHASONE 10 MG/ML VIAL ONE (06:25)
[2019-10-23] MEDS ORDERED: TRANEXAMIC ACID 1,000 MG/10 ML VIAL IV ONE ×2 (06:25→06:30)
[2019-10-23] MEDS ORDERED: MAGNESIUM HYDROXIDE 30 ML ORAL.SUSP PO PRN (06:30)
[2019-10-23] MEDS ORDERED: ONDANSETRON 4 MG/2 ML VIAL IV PRN ×4 (06:30→07:43)
[2019-10-23] MEDS ORDERED: POLYETHYLENE GLYCOL 3350 17 GM PACKET PO PRN (06:30)
[2019-10-23] MEDS ORDERED: KETOROLAC 15 MG/ML VIAL IV PRN (06:30)
[2019-10-23] MEDS ORDERED: BISACODYL 10 MG SUPP.RECT PR PRN (06:30)
[2019-10-23] MEDS ORDERED: TEMAZEPAM 15 MG CAPSULE PO PRN (06:30)
[2019-10-23] MEDS ORDERED: HYDROmorphone 1 MG/ML SYRINGE IV PRN (06:30)
[2019-10-23] MEDS ORDERED: FLEETS ADULT ENEMA PR PRN (06:30)
[2019-10-23] MEDS ORDERED: BENZOCAINE/MENTHOL 1 LOZENGE PO PRN (06:30)
[2019-10-23] MEDS ORDERED: ACETAMINOPHEN 325 MG TABLET PO PRN (06:30)
--- NOTE | 2019-10-23 06:30 | Brief Operative Note ---
Brief Operative Note Date of procedure: 10/23/19 Pre-op diagnosis: right hiip posterior dislocation and seperation of socket Post-op diagnosis: same Procedure: Right total hip revision and reduction Grafts/Implants: Yes Anesthesia: GETA Complications: none Surgeon: Nikhil Parker Estimated blood loss (cc): 50 Tourniquet Time (Minutes): 0 Specimens Removed/Pathology: none sent Condition: stable Disposition: PACU
--- NOTE | 2019-10-23 07:17 | Discharge Summary ---
Discharge Provider Provider Patient information: Note initiated : 10/23/19 at 7:16 am Service Date, if different from initiated Date: [] Patient: Cayla Wilder 79 y/o M admitted on 10/22/19 for Right Hip Dislocation. Chief Complaint: [] Date of admission: 10/22/19 16:15 Discharge date: 10/23/19 Primary care physician: Mc Pierre Consults: 10/22/19 16:57 Consult to Physician [CONS] Routine Comment: Consulting Provider: Glenys Martinez Reason For Exam: Physician to Consult 10/22/19 20:08 Consult to Physician [CONS] Routine Comment: Consulting Provider: Nikhil Parker Reason For Exam: Physician to Consult COURSE Hospital Course Hospital course: doing well with minimal pain Discharge diagnosis: post surgical Reason for admission: paost op Time Spent with Patient Time attestation: Total time spent providing and/or coordinating discharge services: DC Instructions-General Patient Instructions Dressing Care: May shower in 2 days Discharge Plan Patient/Caregiver Discharge Instructions Activity: ambulate only with your walker Diet: Regular Diet Instructions: Hydrocodone/Acetaminophen (By mouth), Aspirin (By mouth), ORIF (DC), Revision Total Joint Arthroplasty (DC) Activity Restrictions/Additional Instructions: Do the exercises at home that physical therapy gave you. Weight bearing as tolerated. Activity as tolerated. Use ice packs as directed, on for 20 minutes at a time throughout the day. This and elevation will help with pain and swelling. Use walker or crutches whenever up and about. You have the ZipLine dressing(a waterproof dressing) covering your surgical incision. DO NOT remove this dressing. Leave in place until follow-up appt. You may start showering on post op day #2, which is October 24. The Zipline dressing can get wet. Do not scrub dressing. Do not use soaps, creams, or lotions over the dressing. Pat dry. No bathing or soaking in hot tub until released by surgeon. Cover with gauze daily and secure with tape. 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 Your prescriptions are with your discharge information. You will be taking Aspirin 81mg 2 x daily for 14 days to prevent blood clots. To avoid constipation while taking any narcotic pain medication, take an over the counter stool softener/laxative. If you have any questions or concerns call your orthopedic surgeon before going to the emergency room. [facility] has an on- call physician 24 hours per day/7 days per week and can be reached at [phone]. Call for fevers above 100.5 or pain not controlled by medication. Prescriptions: New hydrocodone-acetaminophen [[place]] 7.5-325 mg Tablet 1 - 2 tab PO Q4H PRN (Reason: Pain) Qty: 60 RF: 0 Continued trazodone 50 MG tablet 50 mg PO HS RF: 0 lisinopril 20 MG tablet 20 mg PO DAILY RF: 0 meloxicam 7.5 MG tablet 7.5 mg PO DAILY RF: 0 tamsulosin 0.4 MG capsule 0.4 mg PO HS RF: 0 oxybutynin chloride 5 MG tablet 5 mg PO HS RF: 0 diphenhydramine-acetaminophen [Pain Reliever PM Ex-Strength] 1 EACH tablet 1 ea PO HS RF: 0 Discontinued Hydrocodone/Apap 7.5/325mg [[place] 7.5-325mg] 1 TAB Tablet 1 - 2 tab PO Q4HP PRN (Reason: Pain) Qty: 60 RF: 0 Follow Up Plan Follow up with: Nikhil Parker MD [Physician] - (Call office tomorrow for a follow up appt in 2 weeks. ) Patient Disposition: Home, Self-Care Discharge Date/Time: 10/23/19 18:05 Discharge Orders: Discharge Order (Routine); Ordered 10/23/19 Ordered By: Nikhil Parker Pending Pending Pending: Resuscitation Status Full Code Diet Regular Diet Start MonOct 22 Lunch Diet NPO after Midnight Diet Start MonOct 22 0001 Sodium Chloride (Sodium Chloride 0.9%) 1,000 mls @ 75 mls/hr IV .[id number] JENI Last Admin: 10/22/19 21:07 Dose: 75 mls/hr Documented by: DESTINYCULLPauly Cefazolin Sodium 2 gm/ (Dextrose) 50 mls @ 100 mls/hr IV PREOP JENI; Protocol Stop: 10/23/19 12:00 Last Admin: 10/23/19 06:29 Dose: 100 mls/hr Documented by: [email or web address] Oxybutynin Chloride (Ditropan) 5 mg PO HS JENI Last Admin: 10/22/19 20:54 Dose: 5 mg Documented by: MATT Sodium Chloride (Saline Flush) 10 ml IV Q8 COUNTS INCLUDE 234 BEDS AT THE [facility] Last Admin: 10/23/19 04:31 Dose: Not Given Documented by: Admin: 10/22/19 20:55 Dose: 10 ml Documented by: MATT Tamsulosin HCl (Flomax) 0.4 mg PO [facility] Last Admin: 10/22/19 20:54 Dose: 0.4 mg Documented by: MATT Trazodone HCl (Desyrel) 50 mg PO [facility] Last Admin: 10/22/19 20:54 Dose: 50 mg Documented by: MATT Shift Summary 10/23/19 02:53 Shift Summary by Leanna Adam Data of Consult Consult date: 10/22/19 Requesting physician: Nikhil Parker Primary Care Provider: Mc Pierre Consult Narrative Patient Information: Note initiated : 10/22/19 at 7:42 pm Service Date, if different from initiated Date: [] Patient: Cayla Wilder 79 y/o M admitted on 10/22/19 for Right Hip Dislocation. Chief Complaint: right hip pain Patient is a 79-year-old gentleman with a history of right total hip arthroplasty who suffered a dislocation over this past weekend. Patient states he fell/jumped off a ladder when he lost his balance on Monday. He landed hard on his right leg and had pain in his hip, which became dislocated. He was seen in [place], had it reduced. On Monday he fell, again had pain in his hip with redislocation. He is seen Dr. Parker in the office, plans surgical intervention tomorrow. Patient's past medical history is notable for hypertension, prostate cancer and skin cancers. He also has osteoarthritis. 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 The right was due to a blasting cap, the left was due to a splitting maul. He has no history of coronary disease. His activity is not limited by any symptoms of chest tightness or squeezing or pressure. He does not get dyspnea with most exertion. He has no history of und erlying lung disease. No history of congestive heart failure. Other than hip pain, he is generally without complaints. He suffers from occasional postnasal drip, has chronic slow urinary stream which is unchanged. No dysuria. No fevers or chills, no vision changes, no current cough or sputum production, no dyspnea, no orthopnea, no edema, no chest pain/tightness/squeezing. No abdominal pain, nausea or vomiting, diarrhea. No history of stroke, no focal neurologic symptoms. No history of diabetes, no history of thyroid disease, no history of kidney disease. AOX4 pleasant but set in his ways. Patient refusing some care such as SCDs and stool softners. Patient received diluadid 1 mg X 2 during the night for pain in his hip and shoulder. VSS on RA. Voiding per urinal. [place] with no hearing aids. MRSA and Covid negative. Will update at bedside. Initialized on 10/23/19 02:53 - END OF NOTE
--- NOTE | 2019-10-23 07:18 | Discharge Summary ---
Discharge Provider Provider Patient information: Note initiated : 10/23/19 at 7:17 am Service Date, if different from initiated Date: [] Patient: Cayla Wilder 79 y/o M admitted on 10/22/19 for Right Hip Dislocation. Chief Complaint: [] Date of admission: 10/22/19 16:15 Discharge date: 10/23/19 Primary care physician: Mc Pierre Consults: 10/22/19 16:57 Consult to Physician [CONS] Routine Comment: Consulting Provider: Glenys Martinez Reason For Exam: Physician to Consult 10/22/19 20:08 Consult to Physician [CONS] Routine Comment: Consulting Provider: Nikhil Parker Reason For Exam: Physician to Consult COURSE Hospital Course Hospital course: ambulated well Discharge diagnosis: right hip dislocation Time Spent with Patient Time attestation: Total time spent providing and/or coordinating discharge services: Discharge Plan Patient/Caregiver Discharge Instructions Activity: ambulate only with your walker Diet: Regular Diet Instructions: Hydrocodone/Acetaminophen (By mouth), Aspirin (By mouth), ORIF (DC), Revision Total Joint Arthroplasty (DC) Activity Restrictions/Additional Instructions: Do the exercises at home that physical therapy gave you. Weight bearing as tolerated. Activity as tolerated. Use ice packs as directed, on for 20 minutes at a time throughout the day. This and elevation will help with pain and swelling. Use walker or crutches whenever up and about. You have the ZipLine dressing(a waterproof dressing) covering your surgical incision. DO NOT remove this dressing. Leave in place until follow-up appt. You may start showering on post op day #2, which is October 24. The Zipline dressing can get wet. Do not scrub dressing. Do not use soaps, creams, or lotions over the dressing. Pat dry. No bathing or soaking in hot tub until released by surgeon. Cover with gauze daily and secure with tape. 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 Your prescriptions are with your discharge information. You will be taking Aspirin 81mg 2 x daily for 14 days to prevent blood clots. To avoid constipation while taking any narcotic pain medication, take an over the counter stool softener/laxative. If you have any questions or concerns call your orthopedic surgeon before going to the emergency room. [facility] has an on- call physician 24 hours per day/7 days per week and can be reached at [phone]. Call for fevers above 100.5 or pain not controlled by medication. Prescriptions: New hydrocodone-acetaminophen [[place]] 7.5-325 mg Tablet 1 - 2 tab PO Q4H PRN (Reason: Pain) Qty: 60 RF: 0 Continued trazodone 50 MG tablet 50 mg PO HS RF: 0 lisinopril 20 MG tablet 20 mg PO DAILY RF: 0 meloxicam 7.5 MG tablet 7.5 mg PO DAILY RF: 0 tamsulosin 0.4 MG capsule 0.4 mg PO HS RF: 0 oxybutynin chloride 5 MG tablet 5 mg PO HS RF: 0 diphenhydramine-acetaminophen [Pain Reliever PM Ex-Strength] 1 EACH tablet 1 ea PO HS RF: 0 Discontinued Hydrocodone/Apap 7.5/325mg [[place] 7.5-325mg] 1 TAB Tablet 1 - 2 tab PO Q4HP PRN (Reason: Pain) Qty: 60 RF: 0 Follow Up Plan Follow up with: Nikhil Parker MD [Physician] - (Call office tomorrow for a follow up appt in 2 weeks. ) Patient Disposition: Home, Self-Care Discharge Date/Time: 10/23/19 18:05 Discharge Orders: Discharge Order (Routine); Ordered 10/23/19 Ordered By: Nikhil Parker Pending Pending Pending: Resuscitation Status Full Code Diet Regular Diet Start MonOct 22 Lunch Diet NPO after Midnight Diet Start MonOct 22 0001 Sodium Chloride (Sodium Chloride 0.9%) 1,000 mls @ 75 mls/hr IV .[id number] JENI Last Admin: 10/22/19 21:07 Dose: 75 mls/hr Documented by: LSCULLY Cefazolin Sodium 2 gm/ (Dextrose) 50 mls @ 100 mls/hr IV PREOP JENI; Protocol Stop: 10/23/19 12:00 Last Admin: 10/23/19 06:29 Dose: 100 mls/hr Documented by: [email or web address] Oxybutynin Chloride (Ditropan) 5 mg PO HS JENI Last Admin: 10/22/19 20:54 Dose: 5 mg Documented by: LSCULLY Sodium Chloride (Saline Flush) 10 ml IV Q8 JENI Last Admin: 10/23/19 04:31 Dose: Not Given Documented by: Admin: 10/22/19 20:55 Dose: 10 ml Documented by: MATT Tamsulosin HCl (Flomax) 0.4 mg PO [facility] Last Admin: 10/22/19 20:54 Dose: 0.4 mg Documented by: MATT Trazodone HCl (Desyrel) 50 mg PO [facility] Last Admin: 10/22/19 20:54 Dose: 50 mg Documented by: MATT Shift Summary 10/23/19 02:53 Shift Summary by Leanna Adam Data of Consult Consult date: 10/22/19 Requesting physician: Nikhil Parker Primary Care Provider: Mc Pierre Consult Narrative Patient Information: Note initiated : 10/22/19 at 7:42 pm Service Date, if different from initiated Date: [] Patient: Cayla Wilder 79 y/o M admitted on 10/22/19 for Right Hip Dislocation. Chief Complaint: right hip pain Patient is a 79-year-old gentleman with a history of right total hip arthroplasty who suffered a dislocation over this past weekend. Patient states he fell/jumped off a ladder when he lost his balance on Monday. He landed hard on his right leg and had pain in his hip, which became dislocated. He was seen in [place], had it reduced. On Monday he fell, again had pain in his hip with redislocation. He is seen Dr. Parker in the office, plans surgical intervention tomorrow. Patient's past medical history is notable for hypertension, prostate cancer and skin cancers. He also has osteoarthritis. 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 The right was due to a blasting cap, the left was due to a splitting maul. He has no history of coronary disease. His activity is not limited by any symptoms of chest tightness or squeezing or pressure. He does not get dyspnea with most exertion. He has no history of underlying lung disease. No history of congestive heart failure. Other than hip pain, he is generally without complaints. He suffers from occasional postnasal drip, has chronic slow urinary stream which is unchanged. No dysuria. No fevers or chills, no vision changes, no current cough or sputum production, no dyspnea, no orthopnea, no edema, no chest pain/tightness/squeezing. No abdominal pain, nausea or vomiting, diarrhea. No history of stroke, no focal neurologic symptoms. No history of diabetes, no history of thyroid disease, no history of kidney disease. AOX4 pleasant but set in his ways. Patient refusing some care such as SCDs and stool softners. Patient received diluadid 1 mg X 2 during the night for pain in his hip and shoulder. VSS on RA. Voiding per urinal. [place] with no hearing aids. MRSA and Covid negative. Will update at bedside. Initialized on 10/23/19 02:53 - END OF NOTE
[2019-10-23] MEDS ORDERED: ATROPINE SULFATE 0.4 MG/ML VIAL IV PRN (07:43)
[2019-10-23] MEDS ORDERED: fentaNYL 100 MCG/2 ML VIAL IV PRN (07:43)
[2019-10-23] MEDS ORDERED: diphenhydrAMINE 50 MG/ML VIAL IV PRN (07:43)
[2019-10-23] MEDS ORDERED: ePHEDrine 50 MG/ML AMPUL IV PRN (07:43)
[2019-10-23] MEDS ORDERED: MEPERIDINE 25 MG/ML SYRINGE IV PRN (07:43)
[2019-10-23] MEDS ORDERED: METHOCARBAMOL 1,000 MG/10 ML VIAL IV PRN (07:43)
[2019-10-23] MEDS ORDERED: IPRATROPIUM/ALBUTEROL 3 ML AMPUL.NEB NEB PRN (07:43)
[2019-10-23] MEDS ORDERED: ACETAMINOPHEN 1,000 MG/100 ML BOTTLE IV ONE (07:43)
[2019-10-23] MEDS ORDERED: LACTATED RINGERS 1,000 ML IV SCH (07:45)
--- NOTE | 2019-10-23 08:08 | XRay Report ---
INDICATION: Post-op Total Hip TECHNIQUE: AP pelvis. AP and crosstable lateral left hip COMPARISON: Previous AP pelvis dated 06/27/2016 FINDINGS: Status post revision of right hip arthroplasty. Normal anatomic alignment demonstrated. Previous left total hip arthroplasty. Multiple brachytherapy seeds in the prostate IMPRESSION: Status post revision of right hip arthroplasty Interpreted and Authenticated by: Stefano Sanchez 10/23/19
--- NOTE | 2019-10-23 08:09 | Operative Note ---
DATE OF OPERATION: 10/23/2019 PREOPERATIVE DIAGNOSIS: Right hip dislocation which was irreducible. POSTOPERATIVE DIAGNOSIS: Right hip dislocation which was irreducible. PROCEDURE: Right total hip arthroplasty, revision of 1 component, the poly liner and a new ball. We replaced the 42 ball with a +8 neck length ceramic ball. SURGEON: Nikhil Parker MD METAL REFINER: Santiago Lanier PA-C. This provider's expertise and technical skill were required throughout the case. The MIRANDA assisted with preoperative coordination, intraoperative retraction, wound closure, dressing and splint application, as well as postoperative documentation and care coordination. ANESTHESIA: General LMA anesthesia. ESTIMATED BLOOD LOSS: About 50 mL COMPLICATIONS: None. Patient tolerated this well. DESCRIPTION OF PROCEDURE: The patient was brought to the operating room. Once asleep, the patient had the right hip sterilely prepped and draped in the usual sterile fashion. A timeout was performed confirming this was the operative site by initials, consent form and x-rays. Once this was done, we were able to proceed with the case. We made a posterior approach to the hip through a prior incision. Once done, we were able to place [place]an over the skin and made a posterior approach. We placed a Charnley retractor and exposed the joint. The hip was already dislocated superiorly, posteriorly. The ball was removed. We removed the ceramic ball with a +4 neck length 28 mm. The inner ball was still in the socket. This was removed and showed a little bit of wear. We replaced the poly dual mobility ball and then placed a ceramic +8 neck length. There were no complications with this, we were able to reduce the hip and it was very stable throughout. We repaired the capsule posteriorly with a Stratafix, closed the fascial layer with Stratafix, and closed the skin with Stratafix and adhesive closure. We irrigated thoroughly. The patient tolerated this well without complication. Sterile bandage was applied. RBH:ebony Job ID: [id number] Doc ID: [id number] Nikhil Parker MD
[2019-10-23] MEDS: LACTATED RINGERS 1,000 ML IV SCH ×2 (08:48→17:45)
[2019-10-23] MEDS ORDERED: ASPIRIN 325 MG ENTERIC COATED TABLET PO SCH (09:00)
[2019-10-23] MEDS ORDERED: DOCUSATE SODIUM 100 MG CAPSULE PO SCH (09:00)
[2019-10-23] MEDS ORDERED: LISINOPRIL 20 MG TABLET PO SCH (09:00)
[2019-10-23] MEDS: HYDROcodone/APAP 10/325MG TABLET PO PRN ×2 (10:33→10:35)
[2019-10-23] MEDS ORDERED: ceFAZolin 1 GM VIAL IV SCH (14:00)
[2019-10-23] MEDS ORDERED: 0.9 % SODIUM CHLORIDE 10 ML SYRINGE IV SCH (14:00)
[2019-10-23] MEDS ORDERED: SENNOSIDES 1 TABLET PO SCH (21:00)
== END 2019-10-23 18:05 | disposition home or self-care (01) | DRG 468 ==
LOC: MEDSUR 16:15
PROVIDERS: ADMIT Orthopaedic Surgery; ATTEND Orthopaedic Surgery